=== PATIENT | female | born 1955 | race Caucasian/White ===

== ENCOUNTER 2016-12-25 21:00 | Emergency (ER) | payer BC ==
[2016-12-25 21:24] VITALS: TEMP 97.2
[2016-12-25] MEDS ORDERED: HYDROmorphone 1 MG/ML 1 ML SYRINGE IM STA (23:27)
[2016-12-25] MEDS ORDERED: ORPHENADRINE 30 MG/ML 2 ML VIAL IM STA (23:27)
[2016-12-25] MEDS ORDERED: methylPREDNISolone SOD SUCCI 125 MG/2 ML VIAL IV STA (23:27)
[2016-12-25] MEDS ORDERED: KETOROLAC 60 MG/2 ML VIAL IM STA (23:27)
--- NOTE | 2016-12-25 23:30 | ED ---
Back Pain HPI - General Chief Complaint: Back Pain/Injury Stated Complaint: Back Pain Time Seen by Provider: 12/25/16 23:15 Source: patient, family, RN notes reviewed Limitations: no limitations - History of Present Illness Initial Comments: 61-year-old female presents to the emergency department with a chief complaint of back pain. Patient states that she has back pain that radiates into her left hip area. Patient states that it causes increased pain when she moves the leg causing her difficulty in walking. Patient states she has a history of sciatica. Patient states it's been bothering her more lately but tonight it seemed to flareup. Patient denies any loss of bowel or bladder function any saddle anesthesia. Patient states that she was concerned due to how painful was in the fact that she was starting after walking to the pain so she thought that she should be seen. Patient denies any falls or injuries with this. Patient denies any recent fever, chills, shortness of breath, chest pain, abdominal pain, nausea vomiting, numbness or tingling, dysuria or hematuria, constipation or diarrhea, headaches or visual changes, or any other current symptoms. - Related Data Home Medications Medication Instructions Recorded Confirmed Loratadine 10 mg PO DAILY 12/25/16 12/25/16 Sertraline [Zoloft] 100 mg PO DAILY 12/25/16 12/25/16 Simvastatin [Zocor] 20 mg PO HS 12/25/16 12/25/16 Previous Rx's Medication Instructions Recorded Hydrocodone/Acetaminophen [Freeport 1 each PO Q6HR PRN #20 tab 12/26/16 5-325] Orphenadrine [Norflex] 100 mg PO Q12H #10 tablet.er 12/26/16 predniSONE 50 mg PO DAILY #5 tab 12/26/16 Allergies Allergy/AdvReac Type Severity Reaction Status Date / Time No Known Allergies Allergy Verified 12/25/16 23:30 Review of Systems ROS Statement: Those systems with pertinent positive or pertinent negative responses have been documented in the HPI. ROS Other: All systems not noted in ROS Statement are negative. Past Medical History Additional Past Medical History / Comment(s): back pain History of Any Multi-Drug Resistant Organisms: None Reported Past Surgical History: Orthopedic Surgery, Tubal Ligation Additional Past Surgical History / Comment(s): carpal tunnel bilateral Past Psychological History: No Psychological Hx Reported Smoking Status: Former smoker Past Alcohol Use History: Occasional Past Drug Use History: None Reported General Exam Limitations: no limitations General appearance: alert, in no apparent distress Eye exam: Present: normal appearance, PERRL, EOMI. Absent: scleral icterus, conjunctival injection, periorbital swelling ENT exam: Present: normal exam, mucous membranes moist Neck exam: Present: normal inspection. Absent: tenderness, meningismus, lymphadenopathy Respiratory exam: Present: normal lung sounds bilaterally. Absent: respiratory distress, wheezes, rales, rhonchi, stridor Cardiovascular Exam: Present: regular rate, normal rhythm, normal heart sounds. Absent: systolic murmur, diastolic murmur, rubs, gallop, clicks Extremities exam: Present: normal inspection, full ROM, normal capillary refill. Absent: tenderness, pedal edema, joint swelling, calf tenderness Back exam: Present: normal inspection, full ROM, tenderness (Left SI joint). Absent: CVA tenderness (R), CVA tenderness (L), muscle spasm, paraspinal tenderness, vertebral tenderness, rash noted Expanded Back exam: Absent: saddle anesthesia Back exam: Sciatic Notch Tenderness: Left, Positive Straight Leg Raise: Left Neurological exam: Present: alert, oriented X3, CN II-XII intact. Absent: motor sensory deficit Psychiatric exam: Present: normal affect, normal mood Skin exam: Present: warm, dry, intact, normal color. Absent: rash Course Vital Signs 12/25/16 21:19 Temperature 97.2 F L Pulse Rate 62 Respiratory 18 Rate Blood Pressure 118/66 O2 Sat by Pulse 98 Oximetry Medical Decision Making - Medical Decision Making 61-year-old female presents to emergency room chief complaint of back pain. At this time patient's x-rays reviewed. Patient is feeling better and having better movement with the medication. She was offered admission due to the fact of the weakness to the left leg however she does believe this is due to pain. Hurts so much when she moves it but she states she went to go home. She has no neurological findings at this time. We did discuss what to watch for discussed return parameters and follow-up. Patient stated that she understood all questions were answered. She will be discharged. - Radiology Data Radiology results: report reviewed, image reviewed Disposition Clinical Impression: Lumbar strain, Sciatica, left side Disposition: HOME SELF-CARE Condition: Stable Instructions: Acute Low Back Pain (ED) Additional Instructions: Please use medication as discussed. Please follow up with family doctor if symptoms have not improved over the next two days. Please return to the emergency room if your symptoms increase or worsen or for any other concerns. Prescriptions: Hydrocodone/Acetaminophen [Freeport 5-325] 1 each PO Q6HR PRN #20 tab PRN Reason: Pain Orphenadrine [Norflex] 100 mg PO Q12H #10 tablet.er predniSONE 50 mg PO DAILY #5 tab Referrals: Carla Hollins MD [Primary Care Provider] - 1-2 days Time of Disposition: 01:30
[2016-12-26] MEDS ORDERED: HYDROmorphone 1 MG/ML 1 ML SYRINGE IM STA (00:45)
--- NOTE | 2016-12-26 01:26 | XR ---
EXAMINATION TYPE: XR lumbar spine 2 or 3V DATE OF EXAM: 12/26/2016 1:12 AM CLINICAL HISTORY: Pain low back pain left lower leg pain history of degenerative disc disease. TECHNIQUE: Frontal, lateral, images of the lumbar spine are obtained. COMPARISON: 03/18/2012 FINDINGS: There is minor anterolisthesis of grade 1 spondylolisthesis L4 on L5 vertebra is present. Degenerativ e disc disease changes are suggested at the level of L5-S1 with narrowing of disc space. No definite acute fracture is noted in the lumbar spine. IMPRESSION: 1. No definite acute fracture in the lumbar spine. 2. Degenerative disc disease changes in the lower lumbosacral spine. 3. No significant interval change.
[2016-12-26 01:43] VITALS: BP 138/60; PULSE 70; RESP 14
== END 2016-12-26 01:41 | disposition home or self-care (01) ==
LOC: EC 21:00
DX: S39.012A Strain of muscle, fascia and tendon of lower back, initial encounter (principal); M25.552 Pain in left hip; Z87.891 Personal history of nicotine dependence; Z79.899 Other long term (current) drug therapy; Z98.890 Other specified postprocedural states; X58.XXXA Exposure to other specified factors, initial encounter
CPT/HCPCS: 99283; 96374; 96372 ×4; 72100; J2360; J2930; J1885; J1170

== ENCOUNTER → 2017-05-28 | Outpatient (CLI) | payer BC ==
--- NOTE | 2017-05-29 08:50 | MM ---
Reason for exam: screening (asymptomatic). Last mammogram was performed 1 year and 1 month ago. History: Patient is postmenopausal. Family history of breast cancer in maternal grandmother at age 70. Benign stereotactic core biopsy of the left breast, June 11, 2004. Physical Findings: A clinical breast exam by your physician is recommended on an annual basis and results should be correlated with mammographic findings. MG Screening Mammo w CAD Bilateral CC and MLO view(s) were taken. Prior study comparison: April 25, 2016, bilateral MG screening mammo w CAD. February 02, 2015, right breast MG work up mamm w CAD RT. There are scattered fibroglandular densities. Finding: There is a 3 mm equal density (isodense), circumscribed oval mass located 8 cm from the nipple in the 12 o'clock middle position of the right breast. Previous mammotome biopsy in the left breast. New finding since April 25, 2016. ASSESSMENT: Incomplete: need additional imaging evaluation, BI-RAD 0 RECOMMENDATION: Special view mammogram of the right breast. If lesion persists on supplemental views, image directed ultrasound is recommended. [facility] will attempt to contact patient to return for supplemental views and ultrasound if indicated.
== END | disposition home or self-care (01) ==
LOC: RADMAMWWP 15:59
PROVIDERS: ATTEND Obstetrics & Gynecology
DX: Z12.31 Encounter for screening mammogram for malignant neoplasm of breast (principal)

== ENCOUNTER → 2017-06-12 | Outpatient (CLI) | payer BC ==
--- NOTE | 2017-06-12 12:44 | MM ---
Reason for exam: additional evaluation requested from abnormal screening. Last mammogram was performed less than 1 month ago. History: Patient is postmenopausal. Family history of breast cancer in maternal grandmother at age 70. Benign stereotactic core biopsy of the left breast, June 11, 2004. Physical Findings: Nurse did not find any significant physical abnormalities on exam. MG Work Up Mamm w CAD RT LM, spot compression CC, and spot compression MLO view(s) were taken of the right breast. Prior study comparison: May 28, 2017, bilateral MG screening mammo w CAD. April 25, 2016, bilateral MG screening mammo w CAD. February 02, 2015, right breast MG work up mamm w CAD RT. February 02, 2015, right breast US breast limited RT. There are scattered fibroglandular densities. There is a mass central upper quadrant of the right breast stable since 01/30/15. These results were verbally communicated with the patient and result sheet given to the patient on 06/12/17. ASSESSMENT: Benign, BI-RAD 2 RECOMMENDATION: Routine screening mammogram of both breasts in 1 year.
== END | disposition home or self-care (01) ==
LOC: RADMAMWWP 07:40
PROVIDERS: ATTEND Obstetrics & Gynecology
DX: R92.8 Other abnormal and inconclusive findings on diagnostic imaging of breast (principal)

== ENCOUNTER → 2018-06-11 | Outpatient (CLI) | payer BC ==
--- NOTE | 2018-06-11 07:31 | US ---
EXAMINATION TYPE: US duplex aorta DATE OF EXAM: 06/11/2018 COMPARISON: NONE CLINICAL HISTORY: Family history aortic aneurysm Z82.49. EXAM MEASUREMENTS: Abdominal Aorta: Proximal: 2.0cm Mid: 1.6cm Distal: 1.7cm Bifurcation: Right 1.1cm Left 1.1cm No AAA. IMPRESSION: 1. Aorta tapers normally through its visualized course. No aneurysmal dilatation or fusiform prominen ce is evident.
== END | disposition home or self-care (01) ==
LOC: RADUSWWP 06:57
PROVIDERS: ATTEND Family Medicine
DX: Z13.9 Encounter for screening, unspecified (principal); Z82.49 Family history of ischemic heart disease and other diseases of the circulatory system
CPT/HCPCS: 93979

== ENCOUNTER → 2018-07-01 | Outpatient (CLI) | payer BC ==
--- NOTE | 2018-07-03 08:39 | MM ---
Reason for exam: screening (asymptomatic). Last mammogram was performed 1 year and 1 month ago. History: Patient is postmenopausal. Family history of breast cancer in maternal grandmother at age 70. Benign stereotactic core biopsy of the left breast, June 11, 2004. Physical Findings: A clinical breast exam by your physician is recommended on an annual basis and results should be correlated with mammographic findings. MG Screening Mammo w CAD Bilateral CC and MLO view(s) were taken. Prior study comparison: June 12, 2017, right breast MG work up mamm w CAD RT. May 28, 2017, bilateral MG screening mammo w CAD. Previous mammotome biopsy in the left breast. There is chronic nodularity in the right breast. No significant changes when compared with prior studies. ASSESSMENT: Benign, BI-RAD 2 RECOMMENDATION: Routine screening mammogram of both breasts in 1 year.
== END | disposition home or self-care (01) ==
LOC: RADMAMWWP 07:30
PROVIDERS: ATTEND Obstetrics & Gynecology
DX: Z12.31 Encounter for screening mammogram for malignant neoplasm of breast (principal); Z80.3 Family history of malignant neoplasm of breast
CPT/HCPCS: 77067

== ENCOUNTER → 2019-08-05 | Outpatient (CLI) | payer BC ==
--- NOTE | 2019-08-09 10:25 | MM ---
Reason for exam: screening (asymptomatic). Last mammogram was performed 1 year and 1 month ago. History: Patient is postmenopausal. Family history of breast cancer in mother at age 85 and breast cancer in maternal grandmother at age 70. Benign stereotactic core biopsy of the left breast, June 11, 2004. Physical Findings: A clinical breast exam by your physician is recommended on an annual basis and results should be correlated with mammographic findings. MG 3D Screening Mammo W/Cad Bilateral CC and MLO view(s) were taken. Prior study comparison: July 01, 2018, bilateral MG screening mammo w CAD. June 12, 2017, right breast MG work up mamm w CAD RT. There are scattered fibroglandular densities. Previous mammotome biopsy in the left breast. There is chronic nodularity in the right breast. No significant changes when compared with prior studies. ASSESSMENT: Benign, BI-RAD 2 RECOMMENDATION: Routine screening mammogram of both breasts in 1 year.
== END | disposition home or self-care (01) ==
LOC: RADMAMWWP 12:37
PROVIDERS: ATTEND Obstetrics & Gynecology
DX: Z12.31 Encounter for screening mammogram for malignant neoplasm of breast (principal); Z80.3 Family history of malignant neoplasm of breast
CPT/HCPCS: 77063; 77067

== ENCOUNTER → 2020-09-08 | Outpatient (CLI) | payer BC ==
--- NOTE | 2020-09-12 08:40 | MM ---
Reason for exam: screening (asymptomatic). Last mammogram was performed 1 year and 1 month ago. History: Patient is postmenopausal. Family history of breast cancer in mother at age 85 and breast cancer in maternal grandmother at age 70. Benign stereotactic core biopsy of the left breast, June 11, 2004. Physical Findings: A clinical breast exam by your physician is recommended on an annual basis and results should be correlated with mammographic findings. MG 3D Screening Mammo W/Cad Bilateral CC and MLO view(s) were taken. Prior study comparison: August 05, 2019, bilateral MG 3d screening mammo w/cad. July 01, 2018, bilateral MG screening mammo w CAD. There are scattered fibroglandular densities. Finding: There is a typically benign oval mass in the right breast. No significant changes in finding since August 05, 2019 and July 01, 2018. ASSESSMENT: Benign, BI-RAD 2 RECOMMENDATION: Routine screening mammogram of both breasts in 1 year.
== END | disposition home or self-care (01) ==
LOC: RADMAMWWP 07:43
PROVIDERS: ATTEND Obstetrics & Gynecology
DX: Z12.31 Encounter for screening mammogram for malignant neoplasm of breast (principal); Z80.3 Family history of malignant neoplasm of breast
CPT/HCPCS: 77063; 77067

== ENCOUNTER → 2021-07-24 | Outpatient (CLI) | payer BC ==
[2021-07-24 08:33] LABS: Basophils % (A) 1 %; Eosinophils # (A) 0.1 k/uL (0-0.7); Eosinophils % (A) 1 %; HCT 45.5 % (34.0-46.0); HGB 14.2 gm/dL (11.4-16.0); Lymphocytes # (A) 1.8 k/uL (1.0-4.8); Lymphocytes % (A) 27 %; MCH 28.1 pg (25.0-35.0); MCHC 31.3 g/dL (31.0-37.0); MCV 89.8 fL (80.0-100.0); Mean Platelet Volume 8.5; Monocytes # (A) 0.4 k/uL (0-1.0); Monocytes % (A) 6 %; Neutrophils # (A) 4.3 k/uL (1.3-7.7); Neutrophils % (A) 63 %; Platelet Count 281 k/uL (150-450); RBC 5.07 m/uL (3.80-5.40); RDW 13.4 % (11.5-15.5); WBC 6.8 k/uL (3.8-10.6)
[2021-07-24 08:50] LABS: Potassium 5.2 mmol/L (3.5-5.1)
== END | disposition home or self-care (01) ==
LOC: LABWHC1 07:48
PROVIDERS: ATTEND Obstetrics & Gynecology
DX: Z01.812 Encounter for preprocedural laboratory examination (principal); N81.11 Cystocele, midline
CPT/HCPCS: 36415; 80051; 82565; 82947; 84520; 85025; 87086; 93005

== ENCOUNTER 2021-07-31 05:49 | Day surgery (SDC) | payer BC ==
[2021-07-26 11:17] VITALS: BMI 32.1
--- NOTE | 2021-07-30 13:42 | HP ---
HISTORY AND PHYSICAL REASON FOR ADMISSION: Surgery on July 31, 2021. HISTORY OF PRESENT ILLNESS: The patient is a 66-year-old 4, para 4, 0-0-4, who presents to the office with a known history of grade 2-3 uterine prolapse with a grade 2 cystocele in the past, which was previously asymptomatic. She now reports that she has significantly increased symptoms and feels a bulge at the opening of the vagina with clothes rubbing on the tissue causing severe irritation. She denies any significant pressure or pain. She does occasionally have a sensation of sitting on something. She denies any major urinary or GI issues and does not need to splint in order to void in either case. She does feel that she is occasionally not emptying completely or that it takes a significantly longer period of time in order to void completely. She has been abstaining from intercourse as a result of these symptoms. She otherwise would like to remain sexually active. PAST MEDICAL HISTORY: Significant for sleep apnea and history of herniated disk. SURGICAL HISTORY: Significant for an ankle surgery in 1998. She has had this carpal tunnel release in 2012. Endometrial curettage in 2007 with NovaSure. She has had a trigger finger release in 2012 and a tubal ligation in 1989. There were no anesthetic concerns. OBSTETRICAL/COMPUTER VIDEO GAME DESIGNER HISTORY: 4, para 4-0-4, 4 term vaginal deliveries without complications. Contraception has been tubal ligation. Gynecologic history is unremarkable with no history of any infections to include STDs. FAMILY HISTORY: Noncontributory. 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 She is a former smoker but has not smoked in many years now. She denies any other social concerns. CURRENT MEDICATIONS: Include Zocor daily, sertraline 100 mg daily, and an allergy medication as needed. ALLERGIES: No known drug allergies. REVIEW OF SYSTEMS: Is confined to history of present illness. PHYSICAL EXAMINATION: Vital signs are stable. The patient is afebrile. In general, this is a well-developed, well-nourished white female in no acute distress. Her heart has a regular rhythm and rate without murmur. Her lungs are clear to auscultation bilaterally in all sam. Her abdomen is nondistended, has normoactive bowel sounds, soft, nontender, without any palpable masses, hepatosplenomegaly, or hernias. Her extremities are without any cyanosis, clubbing, or significant edema and are nontender to palpation bilaterally. Pelvic examination demonstrates normal external genitalia and BUS with normal vaginal mucosa and cervix. There is a grade 3+ cystocele present with grade 2-3 uterine prolapse present as well. The uterus is otherwise atrophic in size and the adnexa are nontender without any apparent masses bilaterally. ASSESSMENT AND PLAN: 1. Symptomatic uterine prolapse and cystocele: We discussed options for treatment and the patient has declined any interest in a pessary. She has opted instead for surgical repair. We as a result we will proceed with vaginal hysterectomy with anterior colporrhaphy. The risks and complications have been discussed at length including risk for bleeding, bleeding requiring transfusion, infection, and injury to local structures to specifically include the bowel, bladder, and ureters. She has understood all this and agreed to proceed. The typical hospital and postoperative courses have also been discussed. Surgery on July 31, 2021. MMBRISEYDAL / IJN: [id number] /
[~2021-07-31 05:49] MED LIST: LIDOCAINE 1% (10MG/ML) FOR IV START INTRADERMA PRN; SCOPOLAMINE 1.5MG/72HR PATCH TRANSDERM ONE
[2021-07-31 06:58] LABS: Glucose,Whole Blood 89 mg/dL (75-99)
[2021-07-31] MEDS: LACTATED RINGERS 1,000 ML IV SCH ×4 (07:00→21:05)
[2021-07-31] MEDS ORDERED: HYDROmorphone 0.5 MG/0.5 ML SYRINGE IVP PRN (07:00)
[2021-07-31] MEDS: ONDANSETRON 4 MG/2 ML VIAL IVP ONE ×3 (07:13→21:04)
[2021-07-31] MEDS: DEXAMETHASONE SOD PHOSPHATE 4 MG/ML 1 ML VIAL IV ONE ×2 (07:13→21:04)
[2021-07-31] MEDS ORDERED: MIDAZOLAM 2 MG/2 ML VIAL IVP ONE (07:19)
[2021-07-31] MEDS ORDERED: VASOPRESSIN 20 UNIT/ML 1 ML VIAL IV ONE ×2 (07:34→08:07)
[2021-07-31] MEDS ORDERED: BACITRACIN ZINC 500 UNIT/GM OINT 28.4 GM TUBE TOPICAL ONE ×2 (07:36→08:54)
[2021-07-31] MEDS ORDERED: PROPOFOL 10 MG/ML 20 ML VIAL IV ONE (07:37)
[2021-07-31] MEDS ORDERED: LIDOCAINE 1% INJ 10MG/ML (20 ML MDV) ONE (07:37)
[2021-07-31] MEDS ORDERED: MORPHINE SULFATE (PF) 0.3 MG/0.3 ML SYR ONE (07:37)
[2021-07-31] MEDS ORDERED: SUCCINYLCHOLINE CHLORIDE 100 MG/5 ML SYR IV ONE (07:37)
[2021-07-31] MEDS ORDERED: NALBUPHINE 10 MG/ML (1 ML AMP) ONE (07:37)
[2021-07-31] MEDS ORDERED: GLYCOPYRROLATE 0.2 MG/ML 2 ML VIAL ONE (07:37)
[2021-07-31] MEDS ORDERED: fentaNYL (PF) 50 MCG/ML 2 ML AMP ONE (07:37)
[2021-07-31] MEDS ORDERED: NALBUPHINE 10 MG/ML (1 ML AMP) IM ONE (07:45)
[2021-07-31] MEDS ORDERED: LACTATED RINGERS 1,000 ML IV ONE (08:55)
[2021-07-31] MEDS ORDERED: KETOROLAC 15 MG/ML 1 ML VIAL IVP PRN (10:09)
[2021-07-31] MEDS ORDERED: Acetaminophen-Codeine 300-30mg TAB PO PRN ×2 (10:09)
[2021-07-31] MEDS ORDERED: IBUPROFEN 600 MG TAB PO PRN (10:09)
[2021-07-31] MEDS ORDERED: ONDANSETRON 4 MG/2 ML VIAL IVP PRN (10:09)
[2021-07-31] MEDS ORDERED: METOCLOPRAMIDE 5 MG/ML 2 ML VIAL IVP PRN (10:09)
[2021-07-31] MEDS ORDERED: SIMETHICONE 80 MG CHEWABLE PO PRN (10:09)
[2021-07-31] MEDS ORDERED: diphenhydrAMINE 50 MG/ML 1 ML VIAL IVP PRN ×2 (10:09→10:18)
[2021-07-31] MEDS ORDERED: NALOXONE 0.4 MG/ML 1 ML VIAL IV PRN (10:18)
[2021-07-31] MEDS ORDERED: MORPHINE SULFATE 2 MG/ML SYRINGE IVP PRN (10:18)
--- NOTE | 2021-07-31 10:18 | P.ANPRN ---
Procedure Note - Anesthesia - Epidural/Spinal Spinal Time Out Performed: Yes Date of Procedure: 07/31/21 Procedure Start Time: : Procedure Stop Time: Location of Patient: PreOp Indication: Acute Post-Operative Pain Sedation Type: Sedate with meaningful contact maintained Preparation: Sterile Prep Position: Sitting Catheter: None Needle Guage: 25 Injectate: Other (Duramorph 300mcg + fentanyl 25mcg) Blood Aspirated: No Pain Paresthesia on Injection Noted: No Events: Uneventful and Well Tolerated
--- NOTE | 2021-07-31 10:20 | P.OP ---
Date of Procedure: 07/31/21 Preoperative Diagnosis: #1. Symptomatic pelvic organ prolapse with grade 3+ cystocele and grade 3 uterine prolapse Postoperative Diagnosis: Same Procedure(s) Performed: #1. Vaginal hysterectomy #2. Anterior colporrhaphy Anesthesia: BRIGITTE Surgeon: Ivan Corona Production Material Handler #1: Koki Hua Estimated Blood Loss (ml): 200 IV fluids (ml): 800 Urine output (ml): 50 Pathology: other (Uterus) Condition: stable Disposition: PACU Operative Findings: Intraoperatively, the prolapse findings were as indicated above. The ovaries were atrophic to inspection and palpation. The apex and rectum appear to be r elatively well supported. Description of Procedure: The patient was prepped and draped in usual fashion after general endotracheal anesthesia was administered by the anesthesiologist. A weighted speculum was placed and the cervix grasped with a double-tooth tenaculum. The bladder was drained of approximately 50 mL of clear ksenia urine. The cervicovaginal mucosa was infused with diluted vasopressin solution and incised circumferentially with a scalpel. The tissues and reflected distally both sharply and bluntly. The posterior cul-de-sac was opened during the process of blunt dissection allowing replacement of the short weighted speculum with a long weighted speculum after placement of a 2-0 Vicryl for later use. After further reflection of the bladder, the vascular pedicles on each side were clearly noted. A curved Joao-Altamont clamp was placed across the uterosacral ligament on each side which was then cut and suture-ligated with a transfixion stitch of 0 Vicryl. The vascular pedicles on each side were then taken in similar fashion with a curved Joao-Altamont clamp, each being cut and suture-ligated with a transfixion stitch of 0 Vicryl. Approximately 1 more bite on each side was necessary in the similar fashion until the uterus could be inverted posteriorly and the anterior peritoneum identified and opened sharply with the Bovie. The utero-ovarian pedicle was then clamped on each side with a curved Joao- Altamont clamp allowing the specimen to be divided from the patient and sent for pathological diagnoses. Each pedicle was suture-ligated with a transfixion stitch of 0 Vicryl followed by a free tie of 0 Vicryl. There was some ongoing bleeding noted from the right side which was made hemostatic by grasping the bleeder with a Allis clamp and the ligating it with a [id number]-hl-tmorb stitch of 0 Vicryl. Hemostasis then appeared to be excellent from the standpoint of the vascular pedicles. The long weighted speculum was replaced the short weighted speculum and the previously placed stitch of 2-0 Vicryl utilized to close the parietal peritoneum in a running pursestring fashion. The uterosacral ligaments were then affixed to each other with a stitch of 0 Vicryl from each side through the contralateral side and a modified Myers's culdoplasty. The intervening open vaginal mucosa posteriorly was closed with interrupted cymfwy-we-svjno stitches of 0 Vicryl. Any mucosal edges were then made hemostatic with the Bovie. The open anterior portion of the mucosa was grasped at its edges with Allis clamps and the vesicovaginal mucosa infused with diluted vasopressin solution. It was then undermined and divided in the midline to the urethral apex. Blunt and sharp dissection utilized to sweep the mucosa from the u nderlying tissues. After adequate dissection of and carried out bilaterally for catheter was placed and demonstrated clear urine. Serial Amairani plication stitches were taken from the urethral apex to the apex of the vagina using 2-0 PDS. The intervening redundant mucosa was then trimmed and discarded. The vaginal mucosa was closed with a running stitch of 2-0 Vicryl from the urethral apex to the apex of the vagina. All instrumentation was then removed. Estimated blood loss for the entire case was approximately 200 mL. There were no complications. All sponge, instrument, and needle counts were correct. The patient tolerated the procedure well and proceeded to the recovery room in stable condition.
[2021-07-31] MEDS: SENNOSIDES-DOCUSATE SODIUM 1 EACH TAB PO SCH (19:46)
[2021-08-01] MEDS: LACTATED RINGERS 1,000 ML IV SCH (00:34)
[2021-08-01 06:25] VITALS: RESP 16
[2021-08-01 06:34] LABS: Basophils % (A) 0 %; Eosinophils % (A) 0 %; HCT 35.4 % (34.0-46.0); HGB 11.5 gm/dL (11.4-16.0); Lymphocytes # (A) 1.5 k/uL (1.0-4.8); Lymphocytes % (A) 20 %; MCH 28.5 pg (25.0-35.0); MCHC 32.4 g/dL (31.0-37.0); MCV 87.8 fL (80.0-100.0); Mean Platelet Volume 8.6; Monocytes # (A) 0.4 k/uL (0-1.0); Monocytes % (A) 6 %; Neutrophils # (A) 5.5 k/uL (1.3-7.7); Neutrophils % (A) 71 %; Platelet Count 215 k/uL (150-450); RBC 4.03 m/uL (3.80-5.40); RDW 13.7 % (11.5-15.5); WBC 7.7 k/uL (3.8-10.6)
[2021-08-01] MEDS: SENNOSIDES-DOCUSATE SODIUM 1 EACH TAB PO SCH (07:52)
--- NOTE | 2021-08-01 08:44 | P.DS ---
Providers Expected date of discharge: 08/01/21 Attending physician: Ivan Corona Primary care physician: Carla Hollins - Discharge Diagnosis(es) (1) Cystocele Current Visit: Yes Status: Acute (2) Uterine prolapse Current Visit: Yes Status: Acute Hospital Course: The patient is a 66-year-old 4 para 4 who has a long-standing history of known pelvic organ prolapse but was previously asymptomatic. She presented to the office is here with significantly increasing symptoms and report of bulging at or just outside of the opening of the vagina. Examination demonstrated a grade 3+ cystocele with grade 3 uterine prolapse. She requested definitive therapy. She was taken to the operating room where she underwent vaginal hysterectomy with anterior colporrhaphy in an uncomplicated fashion. Her postoperative course was unremarkable with vital signs remained stable and her temperature was afebrile throughout. She did have some nausea on day of surgery which was resolving by the morning of postoperative day #1. She at that time was tolerating crackers but nothing more significant. Her diet was advanced in anticipation of tolerating a regular diet. She additionally had her catheter removed early in the morning on postoperative day #1 and is currently undergoing a voiding trial. Assuming she is able to void the majority of her urinary volume, she will be deemed stable for discharge this afternoon. She will be discharged home to follow-up in the office in 2 weeks for a recheck and 6 weeks routinely. Discharge instructions included calling for any significantly increased bleeding, fever, pain, GI or urinary complaints, or anything else that concerned her. She was additionally instructed to have nothing in the vagina for at least 6 weeks time to include intercourse and to abstain from any heavy lifting over the same period of time. She was less instructed to do no driving until off of all pain medications or 2 weeks' time, whichever came first. She understood her instructions and agrees to follow up as noted above. Discharge medications included only her normal home medications plus a prescription for Tylenol 3, 1-2 by mouth every 6 hours when necessary pain, #20 dispensed with no refills. She was intending to use [id number] analgesic pain medications and had the Tylenol 3 and hand only for significant breakthrough. Discharge hemoglobin and hematocrit were 11.5 and 35.4 respectively. Procedures: #1. Vaginal hysterectomy #2. Anterior colporrhaphy Patient Condition at Discharge: Stable Plan - Discharge Summary Discharge Rx Participant: No New Discharge Prescriptions: No Action Simvastatin [Zocor] 20 mg PO HS Sertraline [Zoloft] 100 mg PO DAILY Discharge Medication List Sertraline [Zoloft] 100 mg PO DAILY 12/25/16 [History] Simvastatin [Zocor] 20 mg PO HS 12/25/16 [History] Follow up Appointment(s)/Referral(s): Ivan Corona MD [STAFF PHYSICIAN] - 2 Weeks Discharge Disposition: HOME SELF-CARE
[2021-08-01 11:59] VITALS: BP 125/73; PULSE 57; TEMP 99.5
== END 2021-08-01 13:40 | disposition home or self-care (01) ==
LOC: OR 05:49 → 4FBP 09:40 → OR 08-01 13:40
PROVIDERS: ATTEND Obstetrics & Gynecology
DX: N81.3 Complete uterovaginal prolapse (principal); G47.30 Sleep apnea, unspecified; Z98.51 Tubal ligation status; Z98.890 Other specified postprocedural states; Z87.891 Personal history of nicotine dependence; Z79.899 Other long term (current) drug therapy; Z20.818 Contact with and (suspected) exposure to other bacterial communicable diseases; R11.0 Nausea
CPT/HCPCS: 86900; 86901; 88305; 84132; 85025; 86850; 87635; 58260; 57240; J2250; J1200; J1100; J2300; J0690; J2405; J2001; J2274; J3010; J1885; J0330; J2704

== ENCOUNTER → 2021-10-17 | Outpatient (CLI) | payer BC ==
--- NOTE | 2021-10-18 14:33 | MM ---
Reason for exam: screening (asymptomatic). Last mammogram was performed 1 year and 1 month ago. History: Patient is postmenopausal. Family history of breast cancer in mother at age 85 and breast cancer in maternal grandmother at age 70. Benign stereotactic core biopsy of the left breast, June 11, 2004. Physical Findings: A clinical breast exam by your physician is recommended on an annual basis and results should be correlated with mammographic findings. MG 3D Screening Mammo W/Cad Bilateral CC and MLO view(s) were taken. Prior study comparison: September 08, 2020, bilateral MG 3d screening mammo w/cad. August 05, 2019, bilateral MG 3d screening mammo w/cad. There are scattered fibroglandular densities. No significant changes when compared with prior studies. ASSESSMENT: Benign, BI-RAD 2 RECOMMENDATION: Routine screening mammogram of both breasts in 1 year.
== END | disposition home or self-care (01) ==
LOC: RADMAMWWP 07:50
PROVIDERS: ATTEND Obstetrics & Gynecology
DX: Z12.31 Encounter for screening mammogram for malignant neoplasm of breast (principal); Z78.0 Asymptomatic menopausal state; Z80.3 Family history of malignant neoplasm of breast
CPT/HCPCS: 77063; 77067

== ENCOUNTER → 2022-10-18 | Outpatient (CLI) | payer MEDICARE, BC ==
--- NOTE | 2022-10-18 11:58 | BD ---
EXAMINATION TYPE: Axial Bone Density DATE OF EXAM: 10/18/2022 COMPARISON: FIRST DEXA AT [facility] CLINICAL HISTORY: 67 years year old Female. ICD-10 CODE: Z78.0 POST MENOPAUSAL Height: 66IN Weight: 223LB FRAX RISK QUESTIONS: Secondary Osteoporosis: RISK FACTORS HISTORY OF: Active: YES Postmenopausal woman: YES MEDICATIONS: Additional Medications: CHOLESTEROL MED, ANXIETY MED Additional History: EXAM MEASUREMENTS: Bone mineral densitometry was performed using the [employer] System. Bone mineral density as measured about the Lumbar spine is: ----- L1-L4(G/cm2): 0.941 T Score Values are as follows: ----- L1: -2.4 ----- L2: -1.8 ----- L3: -2.0 ----- L4: -2.0 ----- L1-L4: -2.0 FIRST DEXA AT [facility] Bone mineral density about the R hip (g/cm2): 0.887 Bone mineral density about the L hip (g/cm2): 0.901 T Score values are as follows: -----R Neck: -1.7 -----L Neck: -1.0 -----R Total: -1.0 -----L Total: -0.8 FRAX%s: The graph provided illustrates a 8.9% chance for a major osteoporotic fx and a 1.1% chance fo r the hips probability for fx in 10 years time. IMPRESSION: Osteopenia (T Score between -2.5 and -1). There is slightly increased risk of fracture and the patient may be considered for treatment. Re-Screen 2-5 years. NOTE: T-SCORE=SD OF THE YOUNG ADULT MEAN.
--- NOTE | 2022-10-21 09:45 | MM ---
Reason for Exam: Screening (asymptomatic). Last screening mammogram was performed 12 month(s) ago. Patient History: Menarche at age 15. First Full-Term at age 27. Postmenopausal. Patient has history of breast feeding. 06/11/2004, Benign Stereotactic Core Biopsy on the left side. Maternal grandmother had breast cancer, age 70. Mother had breast cancer, age 85. Risk Values: Cristine 5 year model risk: 3.8%. NCI Lifetime model risk: 14.0%. Prior Study Comparison: 08/05/2019 Bilateral Screening Mammogram, [facility]. 09/08/2020 Bilateral Screening Mammogram, [facility]. 10/17/2021 Bilateral Screening Mammogram, [facility]. Tissue Density: There are scattered fibroglandular densities. Findings: Analyzed By CAD. Left breast biopsy clip There is no suspicious group of microcalcifications or new suspicious mass in either breast. Overall Assessment: Negative, BI-RAD 1 Management: Screening Mammogram of both breasts in 1 year. A clinical breast exam by your physician is recommended on an annual basis and results should be correlated with mammographic findings. [facility] will attempt to contact patient to return for supplemental views and ultrasound if indicated. Electronically signed and approved by: Oleg Montaño DO
== END | disposition home or self-care (01) ==
LOC: RADMAMWWP 08:40
PROVIDERS: ATTEND Family Medicine
DX: Z12.31 Encounter for screening mammogram for malignant neoplasm of breast (principal); M85.89 Other specified disorders of bone density and structure, multiple sites; Z78.0 Asymptomatic menopausal state; Z80.3 Family history of malignant neoplasm of breast; Z98.890 Other specified postprocedural states
CPT/HCPCS: 77063; 77067; 77080

== ENCOUNTER → 2023-09-15 | Outpatient (CLI) | payer MEDICARE, BC ==
--- NOTE | 2023-09-15 12:11 | XR ---
EXAMINATION TYPE: XR chest 2V DATE OF EXAM: 09/15/2023 COMPARISON: 08/26/2023 INDICATION: Respiratory tract infection TECHNIQUE: Frontal and lateral views of the chest are obtained. FINDINGS: The heart size is normal. The pulmonary vasculature is normal. There is improvement of reticular nodular pattern. Residual however remains present.. IMPRESSION: 1. Improvement of the reticular nodular pattern from prior exam. There is incomplete resolution. Cont inued follow-up is recommended
== END | disposition home or self-care (01) ==
LOC: RADXRMAIN 11:37
PROVIDERS: ATTEND Family Medicine
DX: J06.9 Acute upper respiratory infection, unspecified (principal)
CPT/HCPCS: 71046

== ENCOUNTER → 2023-09-30 | Outpatient (CLI) | payer MEDICARE, BC ==
--- NOTE | 2023-09-30 11:05 | XR ---
EXAMINATION TYPE: XR chest 2V DATE OF EXAM: 09/30/2023 10:06 AM CLINICAL INDICATION:Female, 68 years old with history of R05.2 COUGH R91.8 ABN FINDING LUNG FIELD; PH H COMPARISON: Chest radiographs from 09/15/2023, CT chest 04/01/2012 TECHNIQUE: XR chest 2V Frontal and lateral views of the chest. FINDINGS: Lungs/Pleura: Similar scattered tiny pulmonary nodules. There is no evidence of pleural effusion, foc al consolidation, or pneumothorax. Pulmonary vascularity: Unremarkable. Heart/mediastinum: Cardiomediastinal silhouette is unremarkable. Musculoskeletal: No acute osseous pathology. IMPRESSION: Scattered tiny nodules throughout the lungs similar to 04/01/2012. No evidence for acute airspace proc ess.
== END | disposition home or self-care (01) ==
LOC: RADXRMAIN 09:50
PROVIDERS: ATTEND Family Medicine
DX: R91.8 Other nonspecific abnormal finding of lung field (principal); R05.2 Subacute cough
CPT/HCPCS: 71046

== ENCOUNTER 2023-10-06 09:30 | Emergency (ER) | payer MEDICARE, BC ==
--- NOTE | 2023-10-06 09:45 | ED ---
General Adult HPI - General Source: patient, RN notes reviewed Mode of arrival: ambulatory Limitations: no limitations <Andrsé Solano - Last Filed: 10/06/23 09:45> - General Source: patient, family, RN notes reviewed <Sarah Bermeo - Last Filed: 10/06/23 15:02> - General Stated complaint: diarrhea for about a week Time Seen by Provider: 10/06/23 09:45 - History of Present Illness Initial comments: 68-year-old female presents emergency Department with chief complaint of di arrhea. Patient states she's had diarrhea for one week. Patient states she feels very ill from this. She does admit that she was on antibiotics for 2 weeks prior to this and which she was treated for pneumonia. Patient states she went to urgent acute care [facility] but did not perform a stool study. (Andrés Solano) Patient is 68-year-old female presented ER with chief complaint of diarrhea. Patient has no significant past medical history. Patient states that she has h ad diarrhea for the past week. She also endorses associated nausea but denies vomiting. She also states that when she what she has bright red blood per rectum. Denies any melena. Patient was recently treated with pneumonia and prescribed Bactrim and ciprofloxacin. Patient was seen at urgent care and prescribed Bentyl which has not improved symptoms. She also has been trying [id number] Imodium without relief. Patient denies any fevers, chills, night sweats. Denies any history of diverticulitis. (Sarah Bermeo) - Related Data Home Medications Medication Instructions Recorded Confirmed Dicyclomine [Bentyl] 20 mg PO QID PRN 10/06/23 10/06/23 Loperamide [Imodium] 4 mg PO BID PRN 10/06/23 10/06/23 Montelukast [Singulair] 10 mg PO DAILY 10/06/23 10/06/23 Rosuvastatin [Crestor] 20 mg PO HS 10/06/23 10/06/23 Sertraline [Zoloft] 100 mg PO DAILY 10/06/23 10/06/23 Previous Rx's Medication Instructions Recorded Vancomycin 125 mg PO Q6HR #40 cap 10/06/23 Allergies Allergy/AdvReac Type Severity Reaction Status Date / Time No Known Allergies Allergy Verified 10/06/23 13:08 Review of Systems ROS Other: All systems not noted in ROS Statement are negative. <Andrés Solano - Last Filed: 10/06/23 09:45> ROS Other: All systems not noted in ROS Statement are negative. <Sarah Bermeo - Last Filed: 10/06/23 15:02> ROS Statement: Those systems with pertinent positive or pertinent negative responses have been documented in the HPI. Past Medical History Additional Past Medical History / Comment(s): back pain History of Any Multi-Drug Resistant Organisms: None Reported Past Surgical History: Orthopedic Surgery, Tubal Ligation Additional Past Surgical History / Comment(s): carpal tunnel bilateral Past Psychological History: No Psychological Hx Reported Past Alcohol Use History: Occasional Past Drug Use History: None Reported <Andrés Solano - Last Filed: 10/06/23 09:45> General Exam General appearance: alert, in no apparent distress <Andrés Solano - Last Filed: 10/06/23 09:45> General appearance: alert, in no apparent distress Respiratory exam: Present: normal lung sounds bilaterally. Absent: respiratory distress, wheezes, rales, rhonchi, stridor Cardiovascular Exam: Present: regular rate, normal rhythm, normal heart sounds. Absent: systolic murmur, diastolic murmur, rubs, gallop, clicks GI/Abdominal exam: Present: soft, tenderness (suprapubic), normal bowel sounds Neurological exam: Present: alert, oriented X3, CN II-XII intact Psychiatric exam: Present: normal affect, normal mood Skin exam: Present: warm, dry, intact, normal color. Absent: rash <Sarah Bermeo - Last Filed: 10/06/23 15:02> - General Exam Comments Initial Comments: Visual Physical Exam Vital signs reviewed General: Well-appearing, nontoxic, no acute distress. Head: Normocephalic, atraumatic Eyes: PERRLA, EOMI ENT: Airway patent Chest: Nonlabored breathing Skin: No visual rash, normal skin tone Neuro: Alert and oriented 3 Musculoskeletal: No gross abnormalities (Andrés Solano) Course Vital Signs 10/06/23 09:42 Temperature 98.1 F Pulse Rate 85 Respiratory 16 Rate Blood Pressure 126/80 O2 Sat by Pulse 95 Oximetry Medical Decision Making <Dedoe,Andrés M - Last Filed: 10/06/23 09:45> - Lab Data Result diagrams: 10/06/23 10:31 10/06/23 10:31 <Sarah Bermeo - Last Filed: 10/06/23 15:02> - Medical Decision Making I completed the quick note portion of this chart signed Andrés Solano PA-C (Andrés Solano) Was pt. sent in by a medical professional or institution (, PA, INSTRUCTIONAL SPECIALIST, urgent care, hospital, or detention...) When possible be specific @ -No Did you speak to anyone other than the patient for history (EMS, parent, family, police, friend...)? What history was obtained from this source @ -Family Did you review nursing and triage notes (agree or disagree)? Why? @ -I reviewed and agree with nursing and triage notes Were old charts reviewed (outside hosp., previous admission, EMS record, old EKG, old radiological studies, urgent care reports/EKG's, detention records)? Report findings @ -No old charts were reviewed Differential Diagnosis (chest pain, altered mental status, abdominal pain women, abdominal pain men, vaginal bleeding, weakness, fever, dyspnea, syncope, headache, dizziness, GI bleed, back pain, seizure, CVA, palpatations, mental health, musculoskeletal)? @ -Differential Abdominal Pain Women:Appendicitis, Cholecystitis, diverticulosis, ischemic bowel, pancreatitis, hepatitis, UTI, gastroenteritis, AAA, incarcerated hernia, bowel obstruction, constipation, inflammatory bowel, hepatitis, peptic ulcer disease, splenic infarction, perforated viscus, vulvitis, ovarian torsion, PID, kidney stone, placenta abruption, this is not meant to be an all-inclusive listcable EKG interpreted by me (3pts min.). @ -None X-rays interpreted by me (1pt min.). @ -None done CT interpreted by me (1pt min.). @ -None done U/S interpreted by me (1pt. min.). @ -None done What testing was considered but not performed or refused? (CT, X-rays, U/S, labs)? Why? @ -None What meds were considered but not given or refused? Why? @ -None Did you discuss the management of the patient with other professionals (professionals i.e. , TAE, INSTRUCTIONAL SPECIALIST, lab, RT, psych nurse, delinquency prevention social worker, forest resource specialist, teacher, special assets officer, nurse case manager)? Give summary @ -No Was smoking cessation discussed for >3mins.? @ -No Was critical care preformed (if so, how long)? @ -No Were there social determinants of health that impacted care today? How? (Homelessness, low income, unemployed, alcoholism, drug addiction, transportation, low edu. Level, literacy, decrease access to med. care, group home, rehab)? @ -No Was there de-escalation of care discussed even if they declined (Discuss DNR or withdrawal of care, Hospice)? DNR status @ -No What co-morbidities impacted this encounter? (DM, HTN, Smoking, COPD, CAD, Cancer, CVA, ARF, Chemo, Hep., AIDS, mental health diagnosis, sleep apnea, morbid obesity)? @ -None Was patient admitted / discharged? Hospital course, mention meds given and route, prescriptions, significant lab abnormalities, going to OR and other pertinent info. @ -Discharge. Upon examination patient's vital signs remained stable. Patient had mild suprapubic tenderness to palpation. Normal bowel sounds were noted. Labs obtained in the ER were significant for a lipase of 634 and C. diff stool culture was positive. Patient received 1L IV fluids while in ER. Patient will be prescribed PO vancomycin at discharge. I advised patient to complete full course of antibiotics. Return parameters were discussed. Patient will be discharged in stable condition with follow-up to PCP. Patient expressed understanding and agreement with care plan. Undiagnosed new problem with uncertain prognosis? @ -No Drug Therapy requiring intensive monitoring for toxicity (Heparin, Nitro, Insulin, Cardizem)? @ -No Were any procedures done? @ -No Diagnosis/symptom? @ -Clostridium difficile colitis Acute, or Chronic, or Acute on Chronic? @ -Acute Uncomplicated (without systemic symptoms) or Complicated (systemic symptoms)? @ -Uncomplicated Side effects of treatment? @ -No Exacerbation, Progression, or Severe Exacerbation? @ -No Poses a threat to life or bodily function? How? (Chest pain, USA, CT, pneumonia, PE, COPD, DKA, ARF, appy, cholecystitis, CVA, Diverticulitis, Homicidal, Suicidal, threat to staff... and all critical care pts) @ -No (Sarah Bermeo) - Lab Data Lab Results 10/06/23 10/06/23 10/06/23 Range/Units 10:05 10:31 10:31 WBC 9.3 (3.8-10.6) k/uL RBC 4.81 (3.80-5.40) m/uL Hgb 13.7 (11.4-16.0) gm/dL Hct 40.8 (34.0-46.0) % MCV 85.0 (80.0-100.0) fL MCH 28.5 (25.0-35.0) pg MCHC 33.5 (31.0-37.0) g/dL RDW 13.4 (11.5-15.5) % Plt Count 251 (150-450) k/uL MPV 8.6 Neutrophils % 79 % Lymphocytes % 11 % Monocytes % 6 % Eosinophils % 1 % Basophils % 0 % Neutrophils # 7.4 (1.3-7.7) k/uL Lymphocytes # 1.0 (1.0-4.8) k/uL Monocytes # 0.6 (0-1.0) k/uL Eosinophils # 0.1 (0-0.7) k/uL Basophils # 0.0 (0-0.2) k/uL Sodium 138 (137-145) mmol/L Potassium 3.7 (3.5-5.1) mmol/L Chloride 103 (98-107) mmol/L Carbon Dioxide 17 L (22-30) mmol/L Anion Gap 18 mmol/L BUN 17 (7-17) mg/dL Creatinine 1.01 (0.52-1.04) mg/dL Est GFR (CKD-EPI)AfAm 67 (>60 ml/min/1.73 sqM) Est GFR (CKD-EPI)NonAf 58 (>60 ml/min/1.73 sqM) Glucose 100 H (74-99) mg/dL Calcium 9.3 (8.4-10.2) mg/dL Magnesium 1.9 (1.6-2.3) mg/dL Total Bilirubin 0.6 (0.2-1.3) mg/dL AST 22 (14-36) U/L ALT 17 (4-34) U/L Alkaline Phosphatase 109 (38-126) U/L Total Protein 7.5 (6.3-8.2) g/dL Albumin 4.3 (3.5-5.0) g/dL Lipase 634 H (23-300) U/L C. difficile (EIA) Intrp Positive A (Negative) Disposition <Andrés Solano - Last Filed: 10/06/23 09:45> Is patient prescribed a controlled substance at d/c from ED?: No Time of Disposition: 14:38 <Sarah Bermeo - Last Filed: 10/06/23 15:02> Clinical Impression: Clostridioides difficile infection Disposition: HOME SELF-CARE Condition: Stable Instructions (If sedation given, give patient instructions): C. Diff (Clostridioides Difficile) Infection (ED) Additional Instructions: Please return to the Emergency Department if symptoms worsen or any other concerns. Prescriptions: Vancomycin 125 mg PO Q6HR #40 cap Referrals: Carla Hlolins MD [Primary Care Provider] - 1-2 days
[2023-10-06 09:57] VITALS: TEMP 98.1
[2023-10-06 11:04] LABS: Basophils % (A) 0 %; Eosinophils # (A) 0.1 k/uL (0-0.7); Eosinophils % (A) 1 %; HCT 40.8 % (34.0-46.0); HGB 13.7 gm/dL (11.4-16.0); Lymphocytes % (A) 11 %; MCH 28.5 pg (25.0-35.0); MCHC 33.5 g/dL (31.0-37.0); Mean Platelet Volume 8.6; Monocytes # (A) 0.6 k/uL (0-1.0); Monocytes % (A) 6 %; Neutrophils # (A) 7.4 k/uL (1.3-7.7); Neutrophils % (A) 79 %; Platelet Count 251 k/uL (150-450); RBC 4.81 m/uL (3.80-5.40); RDW 13.4 % (11.5-15.5); WBC 9.3 k/uL (3.8-10.6)
[2023-10-06 11:16] LABS: ALT 17 U/L (4-34); AST 22 U/L (14-36); African American GFR (CKD) 67 (>60 ml/min/1.73 sqM); Albumin 4.3 g/dL (3.5-5.0); Alkaline Phosphatase 109 U/L (38-126); Anion Gap 18 mmol/L; Blood Urea Nitrogen 17 mg/dL (7-17); Calcium 9.3 mg/dL (8.4-10.2); Carbon Dioxide 17 mmol/L (22-30); Chloride 103 mmol/L (98-107); Glucose 100 mg/dL (74-99); Lipase 634 U/L (23-300); Magnesium 1.9 mg/dL (1.6-2.3); Non-African American GFR(CKD) 58 (>60 ml/min/1.73 sqM); Potassium 3.7 mmol/L (3.5-5.1); Sodium 138 mmol/L (137-145); Total Bilirubin 0.6 mg/dL (0.2-1.3); Total Protein 7.5 g/dL (6.3-8.2)
[2023-10-06] MEDS ORDERED: SODIUM CHLORIDE 0.9% 1,000 ML IV STA (12:20)
[2023-10-06 15:31] VITALS: BP 135/82; PULSE 83; RESP 18
== END 2023-10-06 15:06 | disposition home or self-care (01) ==
LOC: EC 09:30
DX: A04.72 Enterocolitis due to Clostridium difficile, not specified as recurrent (principal)
CPT/HCPCS: 36415; 80053; 83690; 83735; 85025; 87324; 96360; 99284

== ENCOUNTER → 2023-10-21 | Outpatient (CLI) | payer MEDICARE, BC ==
--- NOTE | 2023-10-22 15:42 | MM ---
Reason for Exam: Screening (asymptomatic). Last screening mammogram was performed 12 month(s) ago. Patient History: Menarche at age 15. First Full-Term at age 27. Postmenopausal. Patient has history of breast feeding. 06/11/2004, Benign Stereotactic Core Biopsy on the left side. Maternal grandmother had breast cancer, age 70. Mother had breast cancer, age 85. Risk Values: Cristine 5 year model risk: 3.9%. NCI Lifetime model risk: 13.5%. Prior Study Comparison: 09/08/2020 Bilateral Screening Mammogram, [facility]. 10/17/2021 Bilateral Screening Mammogram, [facility]. 10/18/2022 Bilateral MG 3D screening mammo w/cad, [facility]. Tissue Density: There are scattered fibroglandular densities. Findings: Analyzed By CAD. Pattern appears symmetrical and stable. A biopsy clip is within the left breast. No suspicious interval change. Chronic nodularity within the right breast. No suspicious groups of microcalcifications, spiculated or lobular masses, architectural distortion or other secondary signs of malignancy are mammographically apparent. Overall Assessment: Benign, BI-RAD 2 Management: Screening Mammogram of both breasts in 1 year. A negative mammogram report should not preclude additional follow up of suspicious palpable abnormalities. Patient should continue monthly self breast exam. A clinical breast exam by your physician is recommended on an annual basis and results should be correlated with mammographic findings. Electronically signed and approved by: Dima Grant D.O. Radiologis
== END | disposition home or self-care (01) ==
LOC: RADMAMWWP 13:03
PROVIDERS: ATTEND Obstetrics & Gynecology
DX: Z12.31 Encounter for screening mammogram for malignant neoplasm of breast (principal); Z78.0 Asymptomatic menopausal state; Z80.3 Family history of malignant neoplasm of breast
CPT/HCPCS: 77063; 77067

== ENCOUNTER → 2024-08-05 | Outpatient (CLI) | payer MEDICARE, BC ==
[2024-08-05 15:33] LABS: NT-Pro-B-Type Natriuretic Pept 175 pg/mL (0-125)
[2024-08-05 16:36] LABS: LDL Cholesterol,Calculated 93.8 mg/dL (0.0-131.0); VLDL Calculation 18.84 mg/dL (5.00-40.00)
[2024-08-05 16:42] LABS: HCT 43.2 % (37.2-46.3); HGB 13.3 g/dL (12.0-15.0); MCH 27.3 pg (27.0-32.0); MCHC 30.8 g/dL (32.0-37.0); MCV 88.7 FL (80.0-97.0); Mean Platelet Volume 11.7 FL (9.5-12.2); NRBC Per 100 WBC 0 X 10*3/uL (0.00-0.01); Platelet Count 276 X 10*3/uL (140-440); RBC 4.87 X 10*6/uL (4.10-5.20); RDW 14.6 % (11.5-14.5); WBC 6.27 X 10*3/uL (4.50-10.00)
[2024-08-05 16:52] LABS: ALT 30 U/L (8-44); AST 32 U/L (13-35); Albumin 4.3 g/dL (3.8-4.9); Albumin/Globulin Ratio 1.65 Ratio (1.60-3.17); Alkaline Phosphatase 118 U/L (41-126); Blood Urea Nitrogen 18.5 mg/dL (9.0-27.0); Calcium 9.3 mg/dL (8.7-10.3); Carbon Dioxide 18.9 mmol/L (21.6-31.8); Chloride 108 mmol/L (96-109); Globulin 2.6 g/dL (1.6-3.3); Glucose 102 mg/dL (70-110); Potassium 4.5 mmol/L (3.5-5.5); Sodium 142 mmol/L (135-145); Total Bilirubin 0.3 mg/dL (0.3-1.2); Total Protein 6.9 g/dL (6.2-8.2)
== END ==
LOC: LABWHC1 09:18
PROVIDERS: ATTEND Student in an Organized Health Care Education/Training Program
DX: D72.9 Disorder of white blood cells, unspecified (principal); R79.89 Other specified abnormal findings of blood chemistry; E11.9 Type 2 diabetes mellitus without complications; I50.9 Heart failure, unspecified; E78.5 Hyperlipidemia, unspecified; E03.9 Hypothyroidism, unspecified; Z13.6 Encounter for screening for cardiovascular disorders
CPT/HCPCS: 36415; 80053; 80061; 83036; 83880; 84443; 85027; 86141

== ENCOUNTER → 2024-10-22 | Outpatient (CLI) | payer MEDICARE, BC ==
--- NOTE | 2024-10-24 02:26 | MM ---
Reason for Exam: Screening (asymptomatic). Last screening mammogram was performed 12 month(s) ago. Patient History: Menarche at age 15. First Full-Term at age 27. Postmenopausal. Patient has history of breast feeding. 06/11/2004, Benign Stereotactic Core Biopsy on the left side. Maternal grandmother had breast cancer, age 70. Mother had breast cancer, age 85. Risk Values: Cristine 5 year model risk: 3.9%. NCI Lifetime model risk: 13.0%. Prior Study Comparison: 10/17/2021 Bilateral Screening Mammogram, [facility]. 10/18/2022 Bilateral MG 3D screening mammo w/cad, [facility]. 10/21/2023 Bilateral MG 3D screening mammo w/cad, [facility]. Tissue Density: There are scattered areas of fibroglandular density. Findings: Analyzed By CAD. The pattern is symmetrical. Nodularities within the right breast. There is a core marker within the left breast. No suspicious groups of microcalcifications, spiculated or lobular masses, architectural distortion or other secondary signs of malignancy are mammographically apparent. Overall Assessment: Benign, BI-RAD 2 Management: Screening Mammogram of both breasts in 1 year. A negative mammogram report should not preclude additional follow up of suspicious palpable abnormalities. Patient should continue monthly self breast exam. A clinical breast exam by your physician is recommended on an annual basis and results should be correlated with mammographic findings. Note on Cristine scores and lifetime risk: 1. A Cristine score greater than 3% is considered moderate risk. If this is the case, consider specialist referral to assess eligibility for a risk reducing agent. 2. If overall lifetime risk for the development of breast cancer is 20% or higher, the patient may qualify for future screening with alternating mammogram and breast MRI. [facility], , 10/24/2024 2:23 AM. Electronically signed and approved by: Dima Grant D.O. Radiologis
== END | disposition home or self-care (01) ==
LOC: RADMAMWWP 09:50
PROVIDERS: ATTEND Family Medicine
DX: Z12.31 Encounter for screening mammogram for malignant neoplasm of breast (principal); Z78.0 Asymptomatic menopausal state; Z80.3 Family history of malignant neoplasm of breast; R92.323 Mammographic fibroglandular density, bilateral breasts; N63.10 Unspecified lump in the right breast, unspecified quadrant
CPT/HCPCS: 77063; 77067

== ENCOUNTER 2025-02-22 15:45 | Emergency (ER) | payer MEDICARE, BC ==
[2025-02-22 15:52] VITALS: TEMP 97.6
--- NOTE | 2025-02-22 16:47 | ED ---
Fall HPI - General Chief Complaint: Fall Stated Complaint: Fall-Head Injury Time Seen by Provider: 02/22/25 16:43 Source: patient, RN notes reviewed Mode of arrival: ambulatory - History of Present Illness Initial Comments: 69-year-old female presenting for head injury 2 hours ago. States she missed a step coming down from a stepstool, fell back and hit the back of her head on the wall. Denies loss of consciousness. Denies blood thinners. States there is a very large dent in the wall from the impact of her head. She does endorse headache, lightheadedness, and nausea. She does endorse some mild right hand pain as she believes she struck her head on the wall on the way down. Otherwise no other injuries. - Related Data Home Medications Medication Instructions Recorded Confirmed Dicyclomine [Bentyl] 20 mg PO QID PRN 10/06/23 10/06/23 Loperamide [Imodium] 4 mg PO BID PRN 10/06/23 10/06/23 Montelukast [Singulair] 10 mg PO DAILY 10/06/23 10/06/23 Rosuvastatin [Crestor] 20 mg PO HS 10/06/23 10/06/23 Sertraline [Zoloft] 100 mg PO DAILY 10/06/23 10/06/23 Previous Rx's Medication Instructions Recorded Vancomycin 125 mg PO Q6HR #40 cap 10/06/23 Allergies Allergy/AdvReac Type Severity Reaction Status Date / Time No Known Allergies Allergy Verified 02/22/25 15:53 Review of Systems ROS Statement: Those systems with pertinent positive or pertinent negative responses have been documented in the HPI. ROS Other: All systems not noted in ROS Statement are negative. Past Medical History Past Medical History: Hyperlipidemia Additional Past Medical History / Comment(s): back pain History of Any Multi-Drug Resistant Organisms: None Reported Past Surgical History: Orthopedic Surgery, Tubal Ligation Additional Past Surgical History / Comment(s): carpal tunnel bilateral Past Psychological History: Anxiety Past Alcohol Use History: Occasional Past Drug Use History: None Reported General Exam Limitations: no limitations General appearance: alert, in no apparent distress Head exam: Present: atraumatic, normocephalic, normal inspection Eye exam: Present: normal appearance, PERRL, EOMI. Absent: scleral icterus, conjunctival injection, periorbital swelling ENT exam: Present: normal exam, normal oropharynx, mucous membranes moist Neck exam: Present: normal inspection. Absent: tenderness, meningismus, lymphadenopathy Extremities exam: Present: full ROM, normal capillary refill. Absent: normal inspection (There is a mild contusion on third metacarpal of dorsal aspect of right hand, minimal tenderness to palpation), tenderness, pedal edema, joint swelling, calf tenderness Back exam: Present: normal inspection, full ROM. Absent: tenderness Neurological exam: Present: alert, oriented X3, CN II-XII intact Psychiatric exam: Present: normal affect, normal mood Skin exam: Present: warm, dry, intact, normal color. Absent: rash Course Vital Signs 02/22/25 02/22/25 15:47 17:52 Temperature 97.6 F Pulse Rate 66 65 Respiratory 22 18 Rate Blood Pressure 94/66 136/83 O2 Sat by Pulse 95 99 Oximetry Medical Decision Making - Medical Decision Making Was pt. sent in by a medical professional or institution (, PA, MINE SAFETY MANAGER, urgent care, hospital, or [facility]...) When possible be specific @ -No Did you speak to anyone other than the patient for history (EMS, parent, family, police, friend...)? What history was obtained from this source @ -No Did you review nursing and triage notes (agree or disagree)? Why? @ -I reviewed and agree with nursing and triage notes Were old charts reviewed (outside hosp., previous admission, EMS record, old EKG, old radiological studies, urgent care reports/EKG's, [facility] records)? Report findings @ -No old charts were reviewed Differential Diagnosis (chest pain, altered mental status, abdominal pain women, abdominal pain men, vaginal bleeding, weakness, fever, dyspnea, syncope, headache, dizziness, GI bleed, back pain, seizure, CVA, palpatations, mental health, musculoskeletal)? @ -Differential Musculoskeletal Intracranial bleed, concussion, skull fracture, muscular strain, contusion, ligament sprain, fracture, arthritis, septic arthritis, bursitis, cellulitis, muscle spasm, nerve compression, DVT, arterial occlusion, herpes zoster, electrolyte abnormality, tumor.... This is not meant to be in all inclusive list EKG interpreted by me (3pts min.). @ -None X-rays interpreted by me (1pt min.). @ -None done CT interpreted by me (1pt min.). @ -CT brain and C-spine reveals no acute process U/S interpreted by me (1pt. min.). @ -None done What testing was considered but not performed or refused? (CT, X-rays, U/S, labs)? Why? @ -Patient declined right hand x-ray What meds were considered but not given or refused? Why? @ -Declines all pain meds Did you discuss the management of the patient with other professionals (professionals i.e. , PA, MINE SAFETY MANAGER, lab, RT, psych nurse, social work lecturer, flight engineer, teacher, information assurance officer, family caseworker)? Give summary @ -No Was smoking cessation discussed for >3mins.? @ -No Was critical care preformed (if so, how long)? @ -No Were there social determinants of health that impacted care today? How? (Homelessness, low income, unemployed, alcoholism, drug addiction, transportation, low edu. Level, literacy, decrease access to med. care, skilled nursing, rehab)? @ -No Was there de-escalation of care discussed even if they declined (Discuss DNR or withdrawal of care, Hospice)? DNR status @ -No What co-morbidities impacted this encounter? (DM, HTN, Smoking, COPD, CAD, Cancer, CVA, ARF, Chemo, Hep., AIDS, mental health diagnosis, sleep apnea, morbid obesity)? @ -None Was patient admitted / discharged? Hospital course, mention meds given and route, prescriptions, significant lab abnormalities, going to OR and other pertinent info. @ -Discharge. 69-year-old female presenting for head injury 2 hours ago after fall off a stepstool and striking back of head on the wall. Denies loss of consciousness or blood thinners. Patient is experiencing headache, lightheadedness, and nausea. Neurological examination is unremarkable. No obvious signs of head trauma. CT brain and C-spine reveals no acute process. Discussed results with patient. Discussed acute head injury with patient and family. Patient states he is feeling better however is requesting Zofran in case nausea persists. Appropriate return precautions and follow-up care/supportive care discussed. Case was discussed with my ED attending Dr. Damon. Undiagnosed new problem with uncertain prognosis? @ -No Drug Therapy requiring intensive monitoring for toxicity (Heparin, Nitro, Insulin, Cardizem)? @ -No Were any procedures done? @ -No Diagnosis/symptom? @ -Acute head injury Acute, or Chronic, or Acute on Chronic? @ -Acute Uncomplicated (without systemic symptoms) or Complicated (systemic symptoms)? @ -Uncomplicated Side effects of treatment? @ -No Exacerbation, Progression, or Severe Exacerbation? @ -No Poses a threat to life or bodily function? How? (Chest pain, [place], [place], pneumonia, PE, COPD, DKA, ARF, appy, cholecystitis, CVA, Diverticulitis, Homicidal, Suicidal, threat to staff... and all critical care pts) @ -No Disposition Clinical Impression: Closed head injury Disposition: HOME SELF-CARE Condition: Stable Instructions (If sedation given, give patient instructions): Head Injury (ED) Additional Instructions: Take Zofran as needed for nausea. Please return to the Emergency Department if symptoms worsen or any other concerns. Is patient prescribed a controlled substance at d/c from ED?: No Referrals: Carla Hollins MD [Primary Care Provider] - 1-2 days Time of Disposition: 17:45
--- NOTE | 2025-02-22 17:26 | CT ---
EXAMINATION TYPE: CT brain cspine wo con DATE OF EXAM: 02/22/2025 5:05 PM COMPARISON: None available. CLINICAL INDICATION: Female, 69 years old with history of pain; pain after fall and hit head TECHNIQUE: Brain: Multiple axial CT images of the brain were obtained without IV contrast. Cspine: Axial CT images from the skull base to the inferior aspect of T2 we obtained without intraven ous contrast. Coronal and sagittal reformatted images were also reviewed. . CT DLP: 1514.8 mGycm, Automated exposure control for dose reduction was used. FINDINGS: Brain: Extra-axial spaces: No abnormal extra-axial fluid collections. Ventricular system: Within normal limits Cerebral parenchyma: No acute intraparenchymal hemorrhage or mass effect. The parker-white junction is well differentiated. Scattered hypoattenuating areas are seen within the white matter. Cerebellum: Unremarkable. Mass effect: No evidence of midline shift. Intracranial vasculature: unremarkable Soft tissues: Normal. Calvarium/osseous structures: No depressed skull fracture. Paranasal sinuses and mastoid air cells: Clear. Visualized orbits: Orbital contents are intact. Cervical spine: Fracture: None. Osseous structures: Multilevel intervertebral disc space loss. Vertebral alignment: Straightening of the normal cervical spine lordotic curvature. Spinal canal/Neural Foramina: Multilevel facet arthropathy/vertebral hypertrophy in combination with posterior disc osteophyte complex these cause varying degrees of neural foraminal and spinal canal na rrowing. No definite high-grade spinal canal stenosis although evaluation of the spinal canal is limi meagan due to streak artifact. Neck soft tissues: Prevertebral soft tissues are within normal limits. Other: The airway is patent. The lung apices demonstrate mosaic attenuation pattern. IMPRESSION: 1. No acute intracranial process. 2. No evidence of cervical spine fracture. [facility], , 02/22/2025 5:23 PM
[2025-02-22] MEDS: ONDANSETRON 4 MG ODT STARTER PACK 2 TAB BTL PO STA (17:51)
[2025-02-22 18:08] VITALS: BP 136/83; PULSE 65; RESP 18
== END 2025-02-22 18:09 | disposition home or self-care (01) ==
LOC: EC 15:45
DX: S09.90XA Unspecified injury of head, initial encounter (principal); W01.10XA Fall on same level from slipping, tripping and stumbling with subsequent striking against unspecified object, initial encounter
CPT/HCPCS: 72125; 70450; 99283; S0119

== ENCOUNTER 2025-03-30 09:37 | Day surgery (SDC) | payer MEDICARE, BC ==
[2025-03-25 12:15] VITALS: BMI 36.4
[2025-03-30 10:06] VITALS: RESP 16; TEMP 97
[2025-03-30] MEDS: LACTATED RINGERS 1,000 ML IV SCH (10:06)
[2025-03-30] MEDS: IV FLUID CONTINUATION 1,000 ML IV ONE (10:06)
[2025-03-30] MEDS ORDERED: LIDOCAINE 2% (PF) 20 MG/ML 5 ML VIAL ONE (10:33)
[2025-03-30] MEDS ORDERED: PROPOFOL 10 MG/ML 20 ML VIAL IV ONE (10:33)
--- NOTE | 2025-03-30 10:53 | P.PCN ---
Date of Procedure: 03/30/25 Procedure(s) Performed: BRIEF HISTORY: Patient is a 69-year-old pleasant white female scheduled for an elective colonoscopy as a part of evaluation of change in bowel habits for the last 18 months duration. PROCEDURE PERFORMED: Colonoscopy. PREOPERATIVE DIAGNOSIS: Change in bowel habits. IV sedation per Anesthesia. PROCEDURE: After informed consent was obtained, the patient, was brought into the endoscopy unit. IV sedation was administered by Anesthesia under continuous monitoring. Digital rectal examination was normal. Initially the Olympus CF-160 flexible video colonoscope was then inserted in the rectum, gradually advanced into the cecum without any difficulty. Careful examination was performed as the scope was gradually being withdrawn. Ileocecal valve and the appendiceal orifice were visualized and appeared normal. Prep was excellent. Mucosa of the cecum, ascending colon, transverse colon, descending colon, sigmoid colon, and rectum appeared normal. Scattered sigmoid diverticulosis. Retroflexion was performed in the rectum and no lesions were seen. The patient tolerated the procedure well. IMPRESSION: Normal-appearing colon from rectum to cecum with no evidence of colorectal neoplasia Scattered sigmoid diverticulosis RECOMMENDATIONS: Findings of this examination were discussed with the patient as well as her family. She was advised to repeat screening colonoscopy in 10 years..
[2025-03-30 11:14] VITALS: BP 130/86; PULSE 53
== END 2025-03-30 11:51 | disposition home or self-care (01) ==
LOC: ORWHC2ENDO 09:37
PROVIDERS: ATTEND Internal Medicine Gastroenterology
DX: K57.30 Diverticulosis of large intestine without perforation or abscess without bleeding (principal); E78.5 Hyperlipidemia, unspecified; F41.9 Anxiety disorder, unspecified; F32.A Depression, unspecified; Z79.899 Other long term (current) drug therapy; Z98.51 Tubal ligation status
CPT/HCPCS: 45378; J2704; J2003